=== PATIENT | female | born 1980 | race American Indian/Alaskan Native ===

== ENCOUNTER 2021-06-27 19:41 | Emergency (ER) | payer SELFPAY ==
[2021-06-27 21:43] VITALS: BP 141/84
--- NOTE | 2021-06-27 22:30 | XRay Report ---
RIGHT HAND 3 VIEWS INDICATION: pain and swelling R mid finger s/p injury. COMPARISON: No relevant prior imaging study available. FINDINGS: No acute skeletal abnormality. No significant soft tissue swelling. No foreign bodies. IMPRESSION: 1. No acute findings. Signer Name: Olaf Argueta MD Signed: 06/27/2021 10:26 PM Workstation Name: [id number]
--- NOTE | 2021-06-28 01:19 | Emergency Department Report ---
ED General Adult HPI - General Chief complaint: Extremity Injury, Upper Stated complaint: RIGHT MIDDLE FINGER INJURY AT WORK Time Seen by Provider: 06/28/21 01:11 Source: patient Mode of arrival: Ambulatory Limitations: No Limitations - History of Present Illness Initial comments: 40-year-old [id number] female patient presents to emergency department complaints of an accidental injury to her right middle finger starting yesterday. 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 No history of prior injuries to the right hand. Patient applied a homemade splint to the area, which provided relief. Denies elbow pain, arm pain, wrist pain, paresthesias, numbness. Denies all other complaints at this time. - Related Data Allergies Allergy/AdvReac Type Severity Reaction Status Date / Time No Known Allergies Allergy Unverified 06/27/21 21:39 ED Review of Systems ROS: Stated complaint: RIGHT MIDDLE FINGER INJURY AT WORK Other details as noted in HPI Other: GENERAL: Negative for fever. CARDIOVASCULAR: Negative for chest pain. PULMONARY: Negative for shortness of breath. GASTROINTESTINAL: Negative for abdominal pain. MUSCULOSKELETAL: Positive for finger pain. NEUROLOGICAL: Negative for headache. INTEGUMENTARY: Negative for rash. ED Past Medical Hx - Past Medical History Previous Medical History?: No - Surgical History Past Surgical History?: No - Social History Smoking Status: Never Smoker Substance Use Type: None ED Physical Exam - General Limitations: No Limitations - Other Other exam information: General: Awake, appropriately interactive, no acute distress. Neck: Supple. Full range of motion intact. Cardiovascular: Normal peripheral perfusion. Pulmonary: No respiratory distress. Patient is speaking normally without use of accessory muscles. Skin: No apparent rashes or lesions. Neurological: No facial asymmetry. Speech is clear. Follows commands. Patient is alert and oriented. Musculoskeletal: Tenderness to palpation along the base of the right third digit without obvious deformity or dislocation. Active and passive range of motion with and without resistance intact in all directions. No tenderness along the distribution of the anatomical snuffbox. Distal neurovascular and motor/sensory function intact. Psych: Cooperative. Appropriate mood and affect. ED Course Vital Signs 06/27/21 21:39 Temperature 97.7 F Pulse Rate 59 L Respiratory 18 Rate Blood Pressure 141/84 O2 Sat by Pulse 100 Oximetry ED Medical Decision Making - Medical Decision Making Differential diagnosis including but not limited to: sprain, strain, fracture, contusion, dislocation On reevaluation, patient remains stable. Repeat neurovascular exam remains intact. X-rays without acute process. History and exam findings suggestive of sprained finger; no clinical indication for further diagnostic work-up on an emergent basis at this time. Patient will be discharged home with finger splint and referral to orthopedics for close outpatient follow-up. Patient expressed understanding and is agreeable to plan of care. RICE precautions discussed. Strict return precautions provided. Repeat exam is unremarkable and benign. History, exam, diagnostic testing, and current condition do not suggest worrisome pathology to warrant further testing, continued ED treatment, admission, or surgical evaluation at this point. Given the low probability of a significant medical illness, it would be more likely to result in harm than benefit to perform further testing at this stage. Discussed findings, presumptive diagnosis, need for follow-up and specific signs/symptoms that should prompt immediate return to the emergency department. Instructions were explained in detail to the patient in addition to giving written discharge information. Patient expressed understanding and was given the opportunity to ask questions, all of which were satisfactorily answered prior to discharge home. Critical care attestation.: If time is entered above; I have spent that time in minutes in the direct care of this critically ill patient, excluding procedure time. ED Disposition Clinical Impression: Injury of right middle finger Qualifiers: Encounter type: initial encounter Qualified Code(s): S69.91XA - Unspecified injury of right wrist, hand and finger(s), initial encounter Disposition: DC-01 TO HOME OR SELFCARE Is pt being admited?: No Does the pt Need Aspirin: No Condition: Stable Additional Instructions: Take Tylenol every 4 hours and Motrin every 8 hours as needed for pain. Wear finger splint as directed. Apply ice to the affected area as needed to reduce swelling. Keep right hand elevated as often as possible to reduce swelling. Follow-up with Dr. Torres, orthopedics, this week. Call tomorrow to schedule appointment. Return to the emergency department immediately for new or worsening symptoms. Referrals: MANOLO TORRES MD [Staff Physician] - 3-5 Days Forms: Work/School Release Form(ED) Time of Disposition: 01:19
== END 2021-06-28 01:55 | disposition home or self-care (01) ==
LOC: ED 19:41
DX: S69.81XA Other specified injuries of right wrist, hand and finger(s), initial encounter (principal); X58.XXXA Exposure to other specified factors, initial encounter; Y93.89 Activity, other specified; Y92.89 Other specified places as the place of occurrence of the external cause; Y99.0 Civilian activity done for income or pay